=== PATIENT | male | born 1980 | race Caucasian/White ===

== ENCOUNTER 2022-02-11 11:45 | Outpatient (RCR) | payer OTHER | END 2022-02-12 | LOC: M PT 11:45 | DX: M72.2 Plantar fascial fibromatosis (principal) ==

== ENCOUNTER → 2022-08-14 | Outpatient (CLI) | payer OTHER | LOC: M RAD 13:22 | PROVIDERS: ATTEND Internal Medicine | DX: R80.0 Isolated proteinuria (principal) ==